=== PATIENT | female | born 1935 | race Caucasian/White ===

== ENCOUNTER 2017-04-02 18:49 | Emergency (ER) | payer OTHER ==
[~2017-04-02] VITALS: Ht 162.6 cm; Wt 60.0 kg
[2017-04-02 19:38] VITALS: BP 132/66
--- NOTE | 2017-04-02 19:42 | NUR ---
PT SENT TO LAB, NO S/S OF DISTRESS NOTED AT THE MOMENT.
--- NOTE | 2017-04-02 21:22 | NUR ---
PATIENT AMBULATED TO BED 1
--- NOTE | 2017-04-02 21:25 | NUR ---
82/F CAME IN WITH C/O PRODUCTIVE COUGHING AND BODY MALAISE X 5 DAYS. PT REPORTS CLEAR SPUTUM, DENIES FEVER/CHILLS, DENIES N/V/D, SOB/CP. REPORTS LOWER BACK PAIN, NO TRAUMA/INJURY REPORTED PMH: HTN, HYPERTHYROIDISM, PT REPORTS SHE TOOK ROBITUSSIN WITHOUT RELEIF OF SYMTPOMS Addendum: 04/02/17 at 2146 by [email or web address] PMH: HTN, HYPOTHYROIDISM
--- NOTE | 2017-04-02 21:40 | NUR ---
XRAY AT BEDSIDE
[2017-04-02 23:12] VITALS: BP 132/68
--- NOTE | 2017-04-02 23:13 | NUR ---
Patient discharged with v/s stable. Written and verbal after care instructions given and explained. Patient alert, oriented and verbalized understanding of instructions. Ambulatory with steady gait. All questions addressed prior to discharge. ID band removed. Patient advised to follow up with PMD. Rx of TUSSIONEX given. Patient educated on indication of medication including possible reaction and side effects. Opportunity to ask questions provided and answered.
== END 2017-04-02 23:13 | disposition home or self-care (01) ==
LOC: MED 18:49
DX: J11.1 Influenza due to unidentified influenza virus with other respiratory manifestations (principal); I10 Essential (primary) hypertension; Z90.710 Acquired absence of both cervix and uterus; Z90.49 Acquired absence of other specified parts of digestive tract
CPT/HCPCS: 36415; 71010; 81002; 87804; 99285; Q0092